=== PATIENT | female | born 1970 | race Caucasian/White ===

== ENCOUNTER → 2016-08-31 | Outpatient (CLI) | payer OTHER ==
[2016-08-31 18:38] LABS: ALT 36 U/L (9-52); AST 23 U/L (14-36); Alkaline Phosphatase 60 U/L (38-126); Anion Gap 12 mmol/L; Blood Urea Nitrogen 12 mg/dL (7-17); Calcium 9.8 mg/dL (8.4-10.2); Carbon Dioxide 23 mmol/L (22-30); Chloride 103 mmol/L (98-107); Cholesterol 134 mg/dL (<200); Glucose 128 mg/dL (74-99); HDL Cholesterol 42 mg/dL (40-60); Non-African American GFR(MDRD) >60 (>60 ml/min/1.73 sqM); Potassium 3.8 mmol/L (3.5-5.1); Sodium 138 mmol/L (137-145); Total Bilirubin 0.6 mg/dL (0.2-1.3); Total Protein 7.4 g/dL (6.3-8.2); Triglycerides 173 mg/dL (<150)
[2016-08-31 18:57] LABS: Hemoglobin A1C 6.8 % (4.2-6.1)
== END | disposition home or self-care (01) ==
LOC: MMGSC 14:43
PROVIDERS: ATTEND Family Medicine
DX: E11.9 Type 2 diabetes mellitus without complications (principal); I10 Essential (primary) hypertension; E78.5 Hyperlipidemia, unspecified; R74.8 Abnormal levels of other serum enzymes
CPT/HCPCS: 36415; 80053; 80061; 82043; 83036; 83690

== ENCOUNTER → 2017-02-03 | Outpatient (CLI) | payer OTHER ==
[2017-02-03 22:46] LABS: ALT 52 U/L (9-52); AST 32 U/L (14-36); Alkaline Phosphatase 63 U/L (38-126); Anion Gap 10 mmol/L; Blood Urea Nitrogen 11 mg/dL (7-17); Calcium 9.4 mg/dL (8.4-10.2); Carbon Dioxide 25 mmol/L (22-30); Chloride 102 mmol/L (98-107); Cholesterol 115 mg/dL (<200); Glucose 171 mg/dL (74-99); HDL Cholesterol 39 mg/dL (40-60); Non-African American GFR(MDRD) >60 (>60 ml/min/1.73 sqM); Potassium 4.5 mmol/L (3.5-5.1); Sodium 137 mmol/L (137-145); Total Bilirubin 0.3 mg/dL (0.2-1.3); Total Protein 6.9 g/dL (6.3-8.2)
[2017-02-03 23:09] LABS: Hemoglobin A1C 7.6 % (4.2-6.1)
== END ==
LOC: MMGSC 10:15
PROVIDERS: ATTEND Family Medicine
DX: I10 Essential (primary) hypertension (principal); E11.9 Type 2 diabetes mellitus without complications; E78.5 Hyperlipidemia, unspecified; R74.8 Abnormal levels of other serum enzymes
CPT/HCPCS: 36415; 80053; 80061; 83036; 83690

== ENCOUNTER → 2017-05-12 | Outpatient (CLI) | payer OTHER ==
[2017-05-13 02:53] LABS: Hemoglobin A1C 7.1 % (4.0-6.0)
== END | disposition home or self-care (01) ==
LOC: MMGSC 11:37
PROVIDERS: ATTEND Family Medicine
DX: E11.9 Type 2 diabetes mellitus without complications (principal)
CPT/HCPCS: 36415; 83036

== ENCOUNTER → 2018-09-28 | Outpatient (CLI) | payer OTHER ==
--- NOTE | 2018-09-28 15:46 | US ---
EXAMINATION TYPE: US transvaginal DATE OF EXAM: 09/28/2018 COMPARISON: NONE CLINICAL HISTORY: N94.6 DYSMENORRHEA. pelvic pain ongoing for months, TECHNIQUE: TV. Transvaginal sonographic images Date of LMP: 09/20/2018 EXAM MEASUREMENTS: Uterus: 9.4 x 4.5 x 5.1 cm Endometrial Stripe: 0.8 cm Right Ovary: 2.9 x 1.5 x 2.0 cm Left Ovary: 2.3 x 1.5 x 1.8 cm 1. Uterus: Anteverted wnl 2. Endometrium: wnl 3. Right Ovary: 1.5cm dominate follicle versus involuting cyst 4. Left Ovary: wnl 5. Bilateral Adnexa: wnl 6. Posterior cul-de-sac: wnl IMPRESSION: Right ovarian simple appearing 1.5 cm dominant follicle, likely physiologic. This alterna tively could represent an involuting cysts.
== END | disposition home or self-care (01) ==
LOC: RADUSWWP 14:45
PROVIDERS: ATTEND Family Medicine
DX: N94.6 Dysmenorrhea, unspecified (principal)
CPT/HCPCS: 76830

== ENCOUNTER → 2018-12-21 | Outpatient (CLI) | payer OTHER ==
--- NOTE | 2018-12-21 08:27 | MM ---
Reason for exam: screening (asymptomatic). Baseline mammogram. History: Patient had first child at age 33. Family history of breast cancer in paternal grandmother. Physical Findings: Nurse did not find any significant physical abnormalities on exam. MG Screening Mammo w CAD Bilateral CC and MLO view(s) were taken. There are scattered fibroglandular densities. No suspicious abnormality. Calcified abandoned right ventriculoperitoneal shunt. These results were verbally communicated with the patient and result sheet given to the patient on 12/21/18. ASSESSMENT: Negative, BI-RAD 1 RECOMMENDATION: Routine screening mammogram of both breasts in 1 year.
== END | disposition home or self-care (01) ==
LOC: RADMAMWWP 06:48
PROVIDERS: ATTEND Family Medicine
DX: Z12.31 Encounter for screening mammogram for malignant neoplasm of breast (principal)
CPT/HCPCS: 77067

== ENCOUNTER → 2022-05-04 | Outpatient (CLI) | payer OTHER ==
--- NOTE | 2022-05-05 10:44 | MM ---
Reason for Exam: Screening (asymptomatic). Last mammogram was performed 3 year(s) and 5 month(s) ago. Patient History: Menarche at age 15. First Full-Term at age 33. Late child-bearing (after 32). Patient has history of breast feeding. Paternal grandmother had breast cancer. Mother had breast cancer, age 81. Risk Values: Simran 5 year model risk: 2.0%. NCI Lifetime model risk: 17.3%. Prior Study Comparison: 12/21/2018 Bilateral Screening Mammogram, [facility]. Tissue Density: The breast tissue is heterogeneously dense. This may lower the sensitivity of mammography. Findings: Analyzed By CAD. Pattern appears symmetrical and stable. Foreign body is through the right breast. No suspicious groups of microcalcifications, spiculated or lobular masses, architectural distortion or other secondary signs of malignancy are mammographically apparent. Overall Assessment: Benign, BI-RAD 2 Management: Screening Mammogram of both breasts in 1 year. A negative mammogram report should not preclude additional follow up of suspicious palpable abnormalities. Patient should continue monthly self breast exam. A clinical breast exam by your physician is recommended on an annual basis and results should be correlated with mammographic findings. Electronically signed and approved by: Juan Landis D.O. Radiologis
== END | disposition home or self-care (01) ==
LOC: RADMAMWWP 15:12
PROVIDERS: ATTEND Family Medicine
DX: Z12.31 Encounter for screening mammogram for malignant neoplasm of breast (principal); Z80.3 Family history of malignant neoplasm of breast
CPT/HCPCS: 77067

== ENCOUNTER → 2022-07-15 | Outpatient (CLI) | payer OTHER ==
--- NOTE | 2022-07-16 07:29 | US ---
EXAMINATION TYPE: US transvaginal DATE OF EXAM: 07/15/2022 COMPARISON: 09/28/2018 CLINICAL HISTORY: N93.8 DUB. Irregular menses for 3-4 months TECHNIQUE: Transvaginal (TV). Date of LMP: last regular menses 04/15 EXAM MEASUREMENTS: Uterus: 10.2 x 5.7 x 6.7 cm Endometrial Stripe: 0.8 cm Right Ovary: 3.0 x 2.9 x 2.2 cm Left Ovary: 3.9 x 3.0 x 2.5 cm 1. Uterus: Anteverted Nabothian cysts 2. Endometrium: appears wnl as visualized 3. Right Ovary: cystic area = 2.1 x 1.6 x 1.6cm 4. Left Ovary: cystic area = 2.7 x 2.4 x 3.1cm 5. Bilateral Adnexa: wnl 6. Posterior cul-de-sac: wnl IMPRESSION: Bilateral ovarian cysts.
== END | disposition home or self-care (01) ==
LOC: RADUSWWP 15:27
PROVIDERS: ATTEND Family Medicine
DX: N83.202 Unspecified ovarian cyst, left side (principal); N83.201 Unspecified ovarian cyst, right side
CPT/HCPCS: 76830

== ENCOUNTER → 2022-10-07 | Outpatient (CLI) | payer OTHER ==
[2022-10-07 16:19] LABS: ALT 31 U/L (8-44); AST 20 U/L (13-35); Albumin 4.4 d/dL (3.8-4.9); Albumin/Globulin Ratio 1.76 Ratio (1.60-3.17); Alkaline Phosphatase 51 U/L (41-126); Blood Urea Nitrogen 12.9 mg/dL (9.0-27.0); Calcium 9.8 mg/dL (8.7-10.3); Carbon Dioxide 25.5 mmol/L (21.6-31.8); Chloride 99 mmol/L (96-109); Globulin 2.5 d/dL (1.6-3.3); Glucose 150 mg/dL (70-110); Potassium 4.4 mmol/L (3.5-5.5); Sodium 137 mmol/L (135-145); Total Bilirubin 0.3 mg/dL (0.3-1.2); Total Protein 6.9 d/dL (6.2-8.2)
[2022-10-07 16:25] LABS: Basophils # (A) 0.04 X 10*3/uL (0.00-0.10); Basophils % (A) 0.7 %; Eosinophils # (A) 0.26 X 10*3/uL (0.04-0.35); Eosinophils % (A) 4.4 %; HGB 11.9 d/dL (12.0-15.0); Lymphocytes # (A) 2.07 X 10*3/uL (0.90-5.00); Lymphocytes % (A) 35.4 %; MCH 30.6 pg (27.0-32.0); MCHC 33.1 d/dL (32.0-37.0); MCV 92.5 FL (80.0-97.0); Mean Platelet Volume 9.4 FL (9.5-12.2); Monocytes # (A) 0.37 X 10*3/uL (0.20-1.00); Monocytes % (A) 6.3 %; NRBC Per 100 WBC 0 X 10*3/uL (0.00-0.01); Neutrophils # (A) 3.08 X 10*3/uL (1.80-7.70); Neutrophils % (A) 52.7 %; Platelet Count 339 X 10*3/uL (140-440); RBC 3.89 X 10*6/uL (4.10-5.20); RDW 12.3 % (11.5-14.5); WBC 5.85 X 10*3/uL (4.50-10.00)
== END | disposition home or self-care (01) ==
LOC: LABWHC1 12:54
PROVIDERS: ATTEND Family Medicine
DX: E11.9 Type 2 diabetes mellitus without complications (principal); E78.2 Mixed hyperlipidemia; D64.9 Anemia, unspecified
CPT/HCPCS: 36415; 80053; 80061; 83036; 84443; 85025

== ENCOUNTER → 2023-11-24 | Outpatient (CLI) | payer OTHER ==
--- NOTE | 2023-11-24 16:06 | US ---
EXAMINATION TYPE: US pelvis complete transvag DATE OF EXAM: 11/24/2023 COMPARISON: US 2022 CLINICAL INDICATION: Female, 53 years old with history of N92.0 EXCESSIVE AND FREQUENT MENS; TECHNIQUE: . Transabdominal sonographic images of the pelvis were acquired. Date of LMP: 3-4 weeks ago EXAM MEASUREMENTS: Uterus: 10.1 x 5.6 x 6.4 cm Endometrial Stripe: 1.2 cm Right Ovary: 2.5 x 1.3 x 1.9 cm Left Ovary: 3.1 x 1.9 x 2.2 cm 1. Uterus: anteverted 2. Endometrium: appears wnl 3. Right Ovary: wnl 4. Left Ovary: 1.8 x 1.1 x 1.2cm cystic area 5. Bilateral Adnexa: wnl 6. Posterior cul-de-sac: wnl IMPRESSION: 1. There is a 1.8 cm left ovarian cyst which is nonspecific. Recommend follow-up ultrasound in 6-8 we eks to determine resolution. 2. Endometrial stripe measures 1.2 cm in thickness. Recommend correlation with phase of menstrual cyc le to exclude endometrial pathology.
== END | disposition home or self-care (01) ==
LOC: RADMAMWWP 15:11
PROVIDERS: ATTEND Family Medicine
DX: Z12.31 Encounter for screening mammogram for malignant neoplasm of breast (principal); N92.0 Excessive and frequent menstruation with regular cycle; N83.202 Unspecified ovarian cyst, left side
CPT/HCPCS: 76856; 77067